=== PATIENT | male | born 1965 | race Caucasian/White ===

== ENCOUNTER 2018-04-14 15:17 | Emergency (ER) | payer BC ==
[2018-04-14 15:47] VITALS: RESP 18; TEMP 98.3
[2018-04-14] MEDS ORDERED: LIDOCAINE 1% INJ 10MG/ML (20 ML MDV) SQ STA (16:09)
[2018-04-14] MEDS ORDERED: DIPH,PERTUS(ACELL)TETVAC-LF 0.5 ML VIAL IM ONE (16:14)
--- NOTE | 2018-04-14 16:45 | XR ---
EXAMINATION TYPE: XR hand complete LT DATE OF EXAM: 04/14/2018 CLINICAL HISTORY: Laceration to lateral fifth digit TECHNIQUE: Frontal, lateral and oblique images of the left hand are obtained. COMPARISON: None. FINDINGS: No acute fracture or dislocation. A focal soft tissue skin defect is identified lateral border of the midportion of fifth left digit. No radiopaque foreign bodies. IMPRESSION: 1. No acute fracture or dislocation. 2. Laceration to the lateral left fifth digit with no evidence of radiopaque foreign body.
--- NOTE | 2018-04-14 17:17 | ED ---
General Adult HPI - General Chief complaint: Wound/Laceration Stated complaint: lac left Pinky Source: patient, RN notes reviewed, old records reviewed Mode of arrival: ambulatory Limitations: no limitations - History of Present Illness Initial comments: 52-year-old male patient no pertinent past history presents to ED with laceration to left fifth digit. Patient states that he was cleaning a deer head with a knife, when the knife Slipped, causing a laceration on his finger. Patient states that the knife was recently cleaned. Patient denies blood thinners, familial coagulation disease, paresthesias, loss of sensation, loss of function. Patient has full extension, flexion is fifth digit left hand. Patient has full sensation of fingers well. Patient denies any other injury. Systemic: Pt denies fatigue, myalgia, fever/chills, rash. Pt denies weakness, night sweats, weight loss. Neuro: Pt denies headache, visual disturbances, syncope or pre-syncope. HEENT: Pt denies ocular discharge or irritation, otalgia, rhinorrhea, pharyngitis or notable lymphadenopathy. Cardiopulmonary: Pt denies chest pain, SOB, heart palpitations, dyspnea on exertion. Abdominal/GI: Pt denies abdominal pain, n/v/d. : Pt denies dysuria, burning w/ urination, frequency/urgency. Denies new onset urinary or bowel incontinence. MSK: Pt denies myalgia, loss of strength or function in extremities. - Related Data Previous Rx's Medication Instructions Recorded Acetaminophen Tab [Tylenol] 650 mg PO Q6HR PRN tab 04/12/17 Pantoprazole [Protonix] 1 tab PO BID #40 tablet. 04/12/17 Cephalexin [Keflex] 500 mg PO Q12HR 10 Days cap 04/14/18 Allergies Allergy/AdvReac Type Severity Reaction Status Date / Time amoxicillin [Amoxicillin] Allergy Unknown Verified 04/14/18 15:44 Review of Systems ROS Statement: Those systems with pertinent positive or pertinent negative responses have been documented in the HPI. ROS Other: All systems not noted in ROS Statement are negative. Past Medical History Past Medical History: No Reported History Additional Past Medical History / Comment(s): smoker History of Any Multi-Drug Resistant Organisms: None Reported Past Surgical History: Appendectomy Past Psychological History: No Psychological Hx Reported Smoking Status: Former smoker Past Alcohol Use History: Occasional Past Drug Use History: None Reported - Past Family History Father Additional Family Medical History / Comment(s): prostate cancer Brother(s) Family Medical History: No Reported History General Exam - General Exam Comments Initial Comments: Constitutional: NAD, AOX3, Pt has pleasant affect. HEENT: NC/AT, trachea midline, neck supple, no lymphadenopathy. Posterior pharynx non erythematous, without exudates. External ears appear normal, without discharge. Mucous membranes moist. Eyes PERRLA, EOM intact. There is no scleral icterus. No pallor noted. Cardiopulmonary: RRR, no murmurs, rubs or gallops, no JVD noted. Lungs CTAB in anterior and posterior marvin. No peripheral edema. Abdominal exam: Abdomen soft and non-distended. Abdomen non-tender to palpation in all 4 quadrants. Bowel sounds active in LLQ. No hepatosplenomegaly. Neuro: CN II-XII grossly intact. MSK: approximately 2cm laceration noted on L 5th digit just proximal to DIP joint, does not reach PIP joint, does not affect joint. Pt has full extension/ flexion of MCP, PIP, DIP joints, full sensation, capillary refill <2 seconds. Radial pulse +2 bilaterally. Limitations: no limitations Course Vital Signs 04/14/18 15:44 Temperature 98.3 F Pulse Rate 73 Respiratory 18 Rate Blood Pressure 155/102 O2 Sat by Pulse 98 Oximetry Procedures - Laceration Laceration #1 Consent Obtained: verbal consent Time Out Performed: Yes Indication: laceration Site: hand Size (cm): 2 Description: linear Depth: simple, single layer Anesthetic Used: lidocaine 1% Anesthesia Technique: local infiltration Amount (mls): 4 Pre-repair: wound explored (wound explored, irrigated extnsively. No foreign bodies, joint or bone involvement. ) Type of Sutures: nylon Size of Sutures: 5-0 Number of Sutures: 5 Technique: simple, interrupted Patient Tolerated Procedure: well Medical Decision Making - Medical Decision Making 52-year-old male patient no pertinent past history presents to ED with laceration to left fifth digit. Patient states that he was cleaning a deer head with a knife, when the knife Slipped, causing a laceration on his finger. Patient states that the knife was recently cleaned. Patient denies blood thinners, familial coagulation disease, paresthesias, loss of sensation, loss of function. Patient has full extension, flexion is fifth digit left hand. Patient has full sensation of fingers well. Patient denies any other injury. MSK exam displayed approximately 2cm laceration noted on L 5th digit just proximal to DIP joint, does not reach PIP joint, does not affect joint. Pt has full extension/flexion of MCP, PIP, DIP joints, full sensation, capillary refill <2 seconds. Radial pulse +2 bilaterally. Physical exam of HEENT, cardiopulmonary, abdominal, neuro systems display acute pathology. Patient tetanus updated today. Wound irrigated extensively, explored, trauma, no bone involvement. Wound approximated with 5 simple interrupted sutures. Patient given prescription of Keflex for 10 days. Patient to return to ED and have sutures removed in 10 days. Patient to follow with PCP in 1-2 days. Patient to return to ED if any new signs or symptoms develop including worsening pain, redness, discharge, streaking, nausea vomiting diarrhea, fever chills, any other new symptoms. Case discussed with Dr. Chaparro. Disposition Clinical Impression: Laceration Disposition: HOME SELF-CARE Condition: Good Instructions: Laceration (ED) Additional Instructions: Patient to adhere to previously discussed treatment plan and will take medication(s) as directed. Patient to follow up with PCP in 1-2 days. Patient to return to ED if symptoms do not improve. Prescriptions: Cephalexin [Keflex] 500 mg PO Q12HR 10 Days cap Is patient prescribed a controlled substance at d/c from ED?: No Referrals: Leeann Rocha MD [Primary Care Provider] - 1-2 days Time of Disposition: 17:29
[2018-04-14 17:40] VITALS: BP 151/90; PULSE 74
== END 2018-04-14 17:40 | disposition home or self-care (01) ==
LOC: EC 15:17
DX: S61.217A Laceration without foreign body of left little finger without damage to nail, initial encounter (principal); Z23 Encounter for immunization; Z87.891 Personal history of nicotine dependence; Z88.0 Allergy status to penicillin; W26.0XXA Contact with knife, initial encounter; Y93.89 Activity, other specified
CPT/HCPCS: 73130; 90715; 99283; 12001; 90471; J2001

== ENCOUNTER 2018-05-25 08:49 | Day surgery (SDC) | payer BC ==
[2018-05-22 15:04] VITALS: BMI 20.9
[~2018-05-25 08:49] MED LIST: LACTATED RINGERS 1,000 ML IV SCH; LIDOCAINE 1% 20 ML VIAL (10MG/ML) FOR IV START INTRADERMA PRN
[2018-05-25 08:59] VITALS: RESP 18; TEMP 98
[2018-05-25] MEDS ORDERED: LACTATED RINGERS 1,000 ML IV ONE (09:00)
[2018-05-25] MEDS ORDERED: PROPOFOL 10 MG/ML 20 ML VIAL IV ONE (09:49)
[2018-05-25] MEDS ORDERED: LIDOCAINE 1% INJ 10MG/ML (20 ML MDV) ONE (09:49)
--- NOTE | 2018-05-25 10:02 | P.GSHP ---
History of Present Illness H&P Date: 05/25/18 Chief Complaint: Colon cancer screening Patient today for colonoscopy. No bowel related complaints. History of colon polyps in the past. Denies rectal bleeding or melena. Past Medical History Past Medical History: Cancer, GERD/Reflux Additional Past Medical History / Comment(s): MELENOMA-LEFT ARM History of Any Multi-Drug Resistant Organisms: None Reported Past Surgical History: Appendectomy Additional Past Surgical History / Comment(s): LESION REMOVED -MELENOMA - LEFT ARM Past Anesthesia/Blood Transfusion Reactions: No Reported Reaction Smoking Status: Former smoker - Past Family History Father Family Medical History: Cancer Additional Family Medical History / Comment(s): prostate cancer Brother(s) Family Medical History: No Reported History Mother Family Medical History: Cancer Medications and Allergies Home Medications Medication Instructions Recorded Confirmed Type Acetaminophen Tab [Tylenol] 650 mg PO Q6HR PRN tab 04/12/17 05/22/18 Rx Pantoprazole [Protonix] 40 mg PO DAILY 05/22/18 05/22/18 History Varenicline [Chantix Continuing 1 mg PO BID 05/22/18 05/22/18 History Pack] Allergies Allergy/AdvReac Type Severity Reaction Status Date / Time amoxicillin [Amoxicillin] AdvReac Unknown Verified 05/22/18 14:32 Surgical - Exam Vital Signs Temp Pulse Resp BP Pulse Ox 98.0 F 78 18 170/99 98 05/25/18 08:58 05/25/18 08:58 05/25/18 08:58 05/25/18 08:58 05/25/18 08:58 Physical exam: General: Well-developed, well-nourished HEENT: Normocephalic, sclerae nonicteric Abdomen: Nontender, nondistended Extremities: No edema Neuro: Alert and oriented Assessment and Plan (1) Colon cancer screening Narrative/Plan: Will proceed with colonoscopy at this time Current Visit: Yes Status: Acute Code(s): Z12.11 - ENCOUNTER FOR SCREENING FOR MALIGNANT NEOPLASM OF COLON SNOMED Code(s): 808509796
--- NOTE | 2018-05-25 10:13 | P.PCN ---
Date of Procedure: 05/25/18 Procedure(s) Performed: PREOPERATIVE DIAGNOSIS: Colon cancer screening, history of polyps POSTOPERATIVE DIAGNOSIS: Normal exam PROCEDURE: Colonoscopy ANESTHESIA: MAC SURGEON: Nehemiah Rocha M.D. SPECIMENS: None ENDOSCOPIC PROCEDURE: The patient was placed on the endoscopy table in the left decubitus position. The Olympus colonoscope was inserted into the anus and passed under direct visualization to the base of the cecum. The appendiceal orifice was visualized. From that point the scope was slowly withdrawn inspecting all surfaces carefully. There were no neoplastic inflammatory or polypoid lesions throughout the cecum, ascending, transverse, descending, sigmoid and rectum. There was no diverticulosis noted. Digital rectal examination was normal. The patient was taken to the recovery room in stable condition per anesthesia guidelines. RECOMMENDATIONS: Increase fiber. Follow-up colonoscopy 5 years.
[2018-05-25 10:53] VITALS: BP 165/94; PULSE 60
== END 2018-05-25 11:08 | disposition home or self-care (01) ==
LOC: ORWHC2ENDO 08:49
PROVIDERS: ATTEND Surgery
DX: Z12.11 Encounter for screening for malignant neoplasm of colon (principal); K21.9 Gastro-esophageal reflux disease without esophagitis; Z86.010 Personal history of colon polyps; Z87.891 Personal history of nicotine dependence; Z88.0 Allergy status to penicillin; Z79.899 Other long term (current) drug therapy
CPT/HCPCS: 45378; J2001; J2704

== ENCOUNTER → 2018-05-26 | Outpatient (CLI) | payer BC ==
--- NOTE | 2018-05-26 12:27 | XR ---
EXAMINATION TYPE: XR chest 2V DATE OF EXAM: 05/26/2018 COMPARISON: Prior chest x-ray 04/10/2017 HISTORY: Melanoma TECHNIQUE: Frontal and lateral views of the chest are obtained. FINDINGS: There is no focal air space opacity, pleural effusion, or pneumothorax seen. The cardiac silhouette size is within normal limits. The osseous structures are intact. IMPRESSION: No acute cardiopulmonary process.
== END | disposition home or self-care (01) ==
LOC: RADXRMAIN 08:39
PROVIDERS: ATTEND Surgery Surgical Oncology
DX: C43.9 Malignant melanoma of skin, unspecified (principal)
CPT/HCPCS: 71046

== ENCOUNTER → 2022-11-05 | Outpatient (CLI) | payer BC ==
[2022-11-05 23:00] LABS: HCT 42.6 % (39.6-50.0); HGB 14.3 d/dL (12.0-15.0); MCH 32.3 pg (27.0-32.0); MCHC 33.6 d/dL (32.0-37.0); MCV 96.2 FL (80.0-97.0); Mean Platelet Volume 9.7 FL (9.5-12.2); NRBC Per 100 WBC 0 X 10*3/uL (0.00-0.01); Platelet Count 246 X 10*3/uL (140-440); RBC 4.43 X 10*6/uL (4.40-5.60)
[2022-11-05 23:19] LABS: ALT 26 U/L (10-49); AST 38 U/L (14-35); Albumin 4.7 d/dL (3.8-4.9); Albumin/Globulin Ratio 1.88 Ratio (1.60-3.17); Alkaline Phosphatase 77 U/L (41-126); BUN/Creat Ratio 9.38 Ratio (12.00-20.00); Blood Urea Nitrogen 7.5 mg/dL (9.0-27.0); Calcium 9.6 mg/dL (8.7-10.3); Carbon Dioxide 26.1 mmol/L (21.6-31.8); Chloride 105 mmol/L (96-109); Chol/HDL Ratio 4.03 Ratio; Globulin 2.5 d/dL (1.6-3.3); Glucose 85 mg/dL (70-110); Potassium 4.7 mmol/L (3.5-5.5); Sodium 142 mmol/L (135-145); Total Bilirubin 0.4 mg/dL (0.3-1.2); Total Protein 7.2 d/dL (6.2-8.2)
== END | disposition home or self-care (01) ==
LOC: LABWHC1 10:46
PROVIDERS: ATTEND Family Medicine
DX: Z00.00 Encounter for general adult medical examination without abnormal findings (principal); Z12.5 Encounter for screening for malignant neoplasm of prostate
CPT/HCPCS: 36415; 80053; 80061; 83036; 84153; 84443; 85027